=== PATIENT | female | born 1990 | race Caucasian/White ===

== ENCOUNTER 2017-03-07 22:14 | Emergency (ER) | payer OTHER ==
[~2017-03-07] VITALS: Ht 162.6 cm; Wt 59.0 kg
[2017-03-07 22:15] VITALS: BP 117/68; PULSE 67; RESP 16; TEMP 98.9; O2SAT 100
[2017-03-07] MEDS ORDERED: NORG1TAB29 PO (22:25)
[2017-03-07] MEDS ORDERED: LEXA10TA PO (22:25)
--- NOTE | 2017-03-08 00:42 | PD ---
HPI Chief Complaint: Injury Time Seen by Provider: 00:51 Travel History International Travel<30 days: No Contact w/Intl Traveler<30days: No Traveled to known affect area: No History of Present Illness HPI 26-year-old female presents to the emergency room after needle stick to the left thumb. Patient is right-handed. 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 Patient states she had a puncture wound that did bleed and she immediately rinsed the finger. Patient denies any personal history of any medical concerns. Patient states that the source patient reportedly has been hospitalized here since September. Reportedly the patient does not have history of hepatitis. HIV status is reportedly on clear. Pain is 0/10. Tetanus status is current and less than 5 years. PFSH Past Medical History Narrative Medical anxiety; no tobacco use; nursing notes reviewed Anxiety: Yes Diminished Hearing: No Tetanus Vaccination: < 5 Years Influenza Vaccination: Yes ?: Not LMP: 02/15/17 : 0 Para: 0 Social History Alcohol Use: No Tobacco Use: No Substance Use: No Allergies-Medications (Allergen,Severity, Reaction): Uncoded Allergies: sulfa drugs (Allergy, Unknown, 03/07/17) Reported Meds & Prescriptions Reported Meds & Active Scripts Active Reported Low-Ogestrel (Norgestrel-Ethinyl Estradiol) 0.3-30 Mg-Mcg Tab 1 Tab PO DAILY Lexapro (Escitalopram Oxalate) 10 Mg Tab 10 Mg PO DAILY Review of Systems Except as stated in HPI: all other systems reviewed are Neg Physical Exam Narrative GENERAL: Well-developed well-nourished pleasant female in no acute distress no respiratory distress SKIN: Warm and dry. Attention left thumb distal pad no obvious puncture wound identified only small subcentimeter ecchymosis. No active bleeding. HEAD: Normocephalic. EYES: No scleral icterus. No injection or drainage. NECK: Supple, trachea midline. No JVD or lymphadenopathy. CARDIOVASCULAR: Regular rate and rhythm without murmurs, gallops, or rubs. RESPIRATORY: Breath sounds equal bilaterally. No accessory muscle use. Data Data Last Documented VS Vital Signs Date Time Temp Pulse Resp B/P (MAP) Pulse Ox O2 Delivery O2 Flow Rate FiO2 03/08/17 01:54 03/07/17 22:15 98.9 67 16 100 Room Air Orders Orders Ed Discharge Order (03/08/17 01:11) MDM Medical Decision Making Medical Screen Exam Complete: Yes Emergency Medical Condition: Yes Medical Record Reviewed: Yes Differential Diagnosis Needle stick, polymicrobial exposure Narrative Course Patient given appropriate post exposure prophylaxis literatures/information. Patient was able to have consent to identify that he is negative for HIV and for hepatitis; consent was obtained to give this information to the patient and she decided to decline prophylaxis post needlestick and as the source patient is negative for HIV and hepatitis there is no clear indication to proceed with post exposure prophylaxis/medication administration. Patient's tetanus status is current. Specimens collected as baseline from the patient per protocol. Patient is stable to return to work. Diagnosis Primary Impression: Needlestick injury with contaminated needle Qualified Codes: W46.1XXA - Contact with contaminated hypodermic needle, initial encounter Referrals: [employer] 1 day Patient Instructions: General Instructions Med/Other Pt SpecificInfo: No Meds Exist/No RX given Disposition: 01 DISCHARGE HOME Condition: Stable Jaclyn Santillan MD Mar 08, 2017 00:42
== END 2017-03-08 03:24 | disposition home or self-care (01) ==
LOC: NEPC 22:14
DX: S61.032A Puncture wound without foreign body of left thumb without damage to nail, initial encounter (principal); F41.9 Anxiety disorder, unspecified; W46.1XXA Contact with contaminated hypodermic needle, initial encounter; Y92.230 Patient room in hospital as the place of occurrence of the external cause; Y99.0 Civilian activity done for income or pay; Z79.899 Other long term (current) drug therapy; Z88.2 Allergy status to sulfonamides
CPT/HCPCS: 99281

== ENCOUNTER 2017-12-20 04:00 | Observation (INO) ==
[2017-12-20] MEDS ORDERED: Famotidine PF Inj 20 MG/2 ML Vial IV.PUSH ONE (05:16)
[2017-12-20] MEDS ORDERED: Morphine Inj 4 MG/ML Vial IV.PUSH ONE (05:16)
[2017-12-20] MEDS ORDERED: Sod Chloride 0.9% Inj 1,000 ML IV.CONT SCH (05:30)
[2017-12-20 05:36] LABS: Baso % (Auto) 0.2 % (0.0-2.0); Eos % (Auto) 0.7 % (0.0-4.0); Hematocrit 36.8 % (35.0-46.0); Hemoglobin 12.5 gm/dL (11.6-15.3); Lymph # (Auto) 0.6 th/mm3 (1.0-4.8); Lymph % (Auto) 9.2 % (9.0-44.0); Mean Corpuscular HGB Conc 33.8 % (32.0-36.0); Mean Corpuscular Hemoglobin 28.2 pg (27.0-34.0); Mean Corpuscular Volume 83.2 fL (80.0-100.0); Mean Platelet Volume 8.9 fL (7.0-11.0); Mono # (Auto) 0.6 th/mm3 (0.0-0.9); Mono % (Auto) 9.3 % (0.0-8.0); Neut # (Auto) 5.3 th/mm3 (1.8-7.7); Neut % (Auto) 80.6 % (16.0-70.0); Platelet Count 229 th/mm3 (150-450); Red Blood Count 4.42 mil/mm3 (4.00-5.30); Red Cell Distribution Width 13.9 % (11.6-17.2); White Blood Count 6.6 th/mm3 (4.0-11.0)
[2017-12-20 05:55] LABS: Activated Partial Thrombo Time 30.5 sec (24.3-30.1); INR 1.1 Ratio
[2017-12-20 06:01] LABS: Albumin 3.5 g/dL (3.4-5.0); Anion Gap 10 meq/L (5-15); Aspartate Aminotransferase 25 U/L (15-37); Blood Urea Nitrogen 13 mg/dL (7-18); Calcium 8.6 mg/dL (8.5-10.1); Carbon Dioxide 22.9 meq/L (21.0-32.0); Chloride 105 meq/L (98-107); Glomerular Filtration Rate 85 mL/min (>89); Glucose,Random 87 mg/dL (74-106); Lipase 86 U/L (73-393); Potassium 3.8 meq/L (3.5-5.1); Sodium 138 meq/L (136-145)
[2017-12-20 06:02] LABS: Alanine Aminotransferase 36 U/L (10-53)
[2017-12-20 06:04] LABS: Alkaline Phosphatase 55 U/L (45-117); Total Protein 7.4 g/dL (6.4-8.2)
--- NOTE | 2017-12-20 06:05 | ED ---
HPI General Chief Complaint: Abdominal Pain Stated Complaint: Abd pain Time Seen by Provider: 12/20/17 05:07 Source: patient Mode of arrival: ambulatory Limitations: no limitations History of Present Illness HPI narrative: 27-year-old female complains of abdominal pain. Patient states that she started having lower abdominal pain 3 days ago. Patient was seen by personal physician Dr. Bacon and was referred to urologist Dr. Costello for evaluation. Patient had CT scan abdomen pelvis done 2 days ago which shows ovarian cyst. Patient was put on medication for that. Patient was also given Toradol for pain. Patient states the pain is sharp pain severe pain localized to lower abdomen. Patient denies any pain radiation. Patient states that she has nausea and dysuria with the pain. Patient denies any vaginal bleeding. Patient started having fever 101.3 degree tonight. Related Data Home Medications Medication Instructions Recorded Confirmed escitalopram oxalate [Lexapro] 10 mg PO DAILY 12/20/17 12/20/17 levofloxacin 500 mg PO DAILY 12/20/17 12/20/17 Allergies Allergy/AdvReac Type Severity Reaction Status Date / Time sulfa drugs Allergy Unknown Hives Uncoded 12/20/17 04:09 Review of Systems ROS: all other systems reviewed are negative [facility] Medical History Medical History Ovarian cyst (Acute) Social History Social History Substance History: No History of Abuse Second Hand Smoke Exposure: No Smoking Status: Never smoker How Often Do You Have a Drink Containing Alcohol: Monthly or less Recent Travel in [facility] within the Last 8 Weeks: No Recent Out of Country Travel within the Last 8 Weeks: No Immunization History Tetanus Immunization: Unsure Hx Influenza Vaccine This Season: Yes Exam Narrative Exam Narrative: GENERAL: Well-nourished, well-developed patient. SKIN: Focused skin assessment warm/dry. HEAD: Normocephalic. EYES: No scleral icterus. No injection or drainage. NECK: Supple, trachea midline. No JVD or lymphadenopathy. CARDIOVASCULAR: Regular rate and rhythm without murmurs, gallops, or rubs. RESPIRATORY: Breath sounds equal bilaterally. No accessory muscle use. GASTROINTESTINAL: Abdomen soft, nondistended. Patient has moderate to severe tenderness to palpation lower abdomen. No rebound tenderness. No mass. MUSCULOSKELETAL: No cyanosis, or edema. BACK: Nontender without obvious deformity. No CVA tenderness. Course Initial Documented Vital Signs Temperature 99.5 F 12/20/17 04:01 Pulse Rate 110 H 12/20/17 04:01 Respiratory Rate 18 12/20/17 04:01 Blood Pressure 110/59 L 12/20/17 04:01 Pulse Oximetry 96 12/20/17 04:01 Last Documented Vital Signs Temperature 99.5 F 12/20/17 04:01 Pulse Rate 79 12/20/17 07:37 Respiratory Rate 17 12/20/17 07:37 Blood Pressure 91/55 L 12/20/17 07:37 Pulse Oximetry 97 12/20/17 07:37 Medical Decision Making MDM Narrative Medical decision making narrative: 27-year-old female with low abdominal pain. Normal saline solution 125 cc an hour. Morphine 4 mg IV. Zofran 4 mg IV. Patient signed out to me, Dr. Spicer, by Dr. Rivas at 7AM. CT abd/pelvis performed shows possible ovarian cyst and free fluid in the pelvis. Pelvic exam performed shows thin, yellow discharge, yellowish lesion on the 12 o'clock area of the cervix. Patient very uncomfortable during the exam. US performed shows an area of fluid in the pelvis. I spoke with her director of retail merchandising , Dr. Bacon, who would like to take her to the OR for laparoscopy. Patient admitted to same day surgery. Medical Screen Exam Complete: Yes Emergency Medical Condition: Yes Differential Diagnosis Differential Diagnosis: Diagnosis including colitis, pink otitis, cholecystitis , Lab Data Lab results reviewed: Yes I reviewed the patient's lab results. Result diagrams: 12/20/17 04:30 12/20/17 04:30 Lab Results 12/20/17 12/20/17 12/20/17 Range/Units 04:30 04:30 04:30 WBC 6.6 (4.0-11.0) th/mm3 RBC 4.42 (4.00-5.30) mil/mm3 Hgb 12.5 (11.6-15.3) gm/dL Hct 36.8 (35.0-46.0) % MCV 83.2 (80.0-100.0) fL MCH 28.2 (27.0-34.0) pg MCHC 33.8 (32.0-36.0) % RDW 13.9 (11.6-17.2) % Plt Count 229 (150-450) th/mm3 MPV 8.9 (7.0-11.0) fL Neut % (Auto) 80.6 H (16.0-70.0) % Lymph % (Auto) 9.2 (9.0-44.0) % Amelia % (Auto) 9.3 H (0.0-8.0) % Eos % (Auto) 0.7 (0.0-4.0) % Baso % (Auto) 0.2 (0.0-2.0) % Neut # (Auto) 5.3 (1.8-7.7) th/mm3 Lymph # (Auto) 0.6 L (1.0-4.8) th/mm3 Amelia # (Auto) 0.6 (0.0-0.9) th/mm3 Eos # (Auto) 0.0 (0.0-0.4) th/mm3 Baso # (Auto) 0.0 (0.0-0.2) th/mm3 WBC Differential . Differential Comment Auto diff final PT 11.0 (9.8-11.6) sec INR 1.1 Ratio APTT 30.5 H (24.3-30.1) sec Sodium 138 (136-145) meq/L Potassium 3.8 (3.5-5.1) meq/L Chloride 105 (98-107) meq/L Carbon Dioxide 22.9 (21.0-32.0) meq/L Anion Gap 10 (5-15) meq/L BUN 13 (7-18) mg/dL Creatinine 0.82 (0.50-1.00) mg/dL Estimated GFR 85 L (>89) mL/min Random Glucose 87 (74-106) mg/dL Calcium 8.6 (8.5-10.1) mg/dL Total Bilirubin 0.2 (0.2-1.0) mg/dL AST 25 (15-37) U/L ALT 36 (10-53) U/L Alkaline Phosphatase 55 (45-117) U/L Total Protein 7.4 (6.4-8.2) g/dL Albumin 3.5 (3.4-5.0) g/dL Lipase 86 (73-393) U/L Urine Color (Yellw/Straw) Urine Clarity (Clear) Urine pH (5.0-8.5) Ur Specific Clifton (1.002-1.035) Urine Protein (Neg-Trace) mg/dL Urine Glucose (UA) (Negative) mg/dL Urine Ketones (Negative) mg/dL Urine Occult Blood (Negative) Urine Nitrate (Negative) Urine Bilirubin (Negative) Urine Urobilinogen (Less than 2) mg/dL Ur Leukocyte Esterase (Negative) Urine RBC (0-3) /hpf Urine WBC (0-5) /hpf Ur Squamous Epith Cells (0-5) /hpf Micro UA Comment Ur Microscopic Review Urine Culture Comments Clue Cells (Wet Prep) (None Seen) Trichomonas (Wet Prep) (None Seen) Yeast (Wet Prep) (None Seen) 12/20/17 12/20/17 Range/Units 06:20 09:25 WBC (4.0-11.0) th/mm3 RBC (4.00-5.30) mil/mm3 Hgb (11.6-15.3) gm/dL Hct (35.0-46.0) % MCV (80.0-100.0) fL MCH (27.0-34.0) pg MCHC (32.0-36.0) % RDW (11.6-17.2) % Plt Count (150-450) th/mm3 MPV (7.0-11.0) fL Neut % (Auto) (16.0-70.0) % Lymph % (Auto) (9.0-44.0) % Amelia % (Auto) (0.0-8.0) % Eos % (Auto) (0.0-4.0) % Baso % (Auto) (0.0-2.0) % Neut # (Auto) (1.8-7.7) th/mm3 Lymph # (Auto) (1.0-4.8) th/mm3 Amelia # (Auto) (0.0-0.9) th/mm3 Eos # (Auto) (0.0-0.4) th/mm3 Baso # (Auto) (0.0-0.2) th/mm3 WBC Differential Differential Comment PT (9.8-11.6) sec INR Ratio APTT (24.3-30.1) sec Sodium (136-145) meq/L Potassium (3.5-5.1) meq/L Chloride (98-107) meq/L Carbon Dioxide (21.0-32.0) meq/L Anion Gap (5-15) meq/L BUN (7-18) mg/dL Creatinine (0.50-1.00) mg/dL Estimated GFR (>89) mL/min Random Glucose (74-106) mg/dL Calcium (8.5-10.1) mg/dL Total Bilirubin (0.2-1.0) mg/dL AST (15-37) U/L ALT (10-53) U/L Alkaline Phosphatase (45-117) U/L Total Protein (6.4-8.2) g/dL Albumin (3.4-5.0) g/dL Lipase (73-393) U/L Urine Color Straw (Yellw/Straw) Urine Clarity Clear (Clear) Urine pH 7.0 (5.0-8.5) Ur Specific Clifton 1.010 (1.002-1.035) Urine Protein Negative (Neg-Trace) mg/dL Urine Glucose (UA) Negative (Negative) mg/dL Urine Ketones Negative (Negative) mg/dL Urine Occult Blood Negative (Negative) Urine Nitrate Negative (Negative) Urine Bilirubin Negative (Negative) Urine Urobilinogen Less than 2 (Less than 2) mg/dL Ur Leukocyte Esterase Trace H (Negative) Urine RBC 1 (0-3) /hpf Urine WBC 8 H (0-5) /hpf Ur Squamous Epith Cells 1 (0-5) /hpf Micro UA Comment Culture indicated Ur Microscopic Review Not Reportable Urine Culture Comments Culture indicated Clue Cells (Wet Prep) None seen (None Seen) Trichomonas (Wet Prep) None seen (None Seen) Yeast (Wet Prep) None seen (None Seen) Imaging Data Radiologist's impression: Abdomen/Pelvis CT 12/20/17 05:16 CONCLUSION: 1. Abnormal left adnexa consisting of some irregular enhancement about tube and ovary with fluid in the cul-de-sac all suspicious for PID. 2. I do not see inflammatory changes in the abdomen 3. There is no free fluid in the abdomen. Pelvis Ultrasound 12/20/17 08:06 CONCLUSION: Likely complex fluid adjacent to the left ovary. Discharge Plan Discharge Disposition Patient Disposition: 30 Still Patient Discharge Condition Condition: Stable Discharge Details Diagnosis: Left pelvic adnexal fluid collection Physicians Team ED Provider: Tessa Spicer Primary Care Provider: UNKNOWN, Attending Provider: Lake Bacon Status ED Status: With Doctor
[2017-12-20 06:52] LABS: Bilirubin,Urine Negative (Negative); Clarity,Urine Clear (Clear); Color,Urine Straw (Yellw/Straw); Glucose,Urine (UA) Negative (Negative); Leukocyte Esterase,Urine Trace (Negative); Nitrite,Urine Negative (Negative); Squamous Epithelial Cell,Urine 1 /hpf (0-5)
--- NOTE | 2017-12-20 08:00 | CT ---
EXAM DATE: 12/20/2017 5:47 AM EDT AGE/SEX: 27 years / Female INDICATIONS: Abdominal pain, fever. CLINICAL DATA: This is the patient's initial encounter. Patient reports that signs and symptoms have been present for 1 day and indicates a pain score of 6/10. MEDICAL/SURGICAL HISTORY: None. None. ORAL CONTRAST: No oral contrast ingested. RADIATION DOSE: 6.11 CTDI (mGy) COMPARISON: No prior exams available for comparison. TECHNIQUE: Multiple contiguous axial images were obtained through the abdomen and pelvis following b olus infusion of 90 ml Omnipaque 350 (iohexol) nonionic water-soluble contrast as a single exam dos e. No oral contrast ingested. Using automated exposure control and adjustment of the mA and/or kV ac cording to patient size, radiation dose was kept as low as reasonably achievable to obtain optimal di agnostic quality images. DICOM format image data is available electronically for review and comparis on. FINDINGS: Lower lungs are clear. The liver and gallbladder are unremarkable Spleen and pancreas appear normal Adrenals and kidneys are unremarkable. There is no evidence for stone or pyelonephritis. In the pelvis trace free fluid is evident with cystic areas in both adnexal regions and some enhancem ent in the left adnexa suggesting PID. The uterus is empty. Region of the cecum and terminal unremarkable. There is no evidence for colitis. Review of bone windows reveals mild degenerative changes about both SI joints. CONCLUSION: 1. Abnormal left adnexa consisting of some irregular enhancement about tube and ovary with fluid in the cul-de-sac all suspicious for PID. 2. I do not see inflammatory changes in the abdomen 3. There is no free fluid in the abdomen. Electronically signed by: Ramsey Jean MD 12/20/2017 7:58 AM EDT
--- NOTE | 2017-12-20 09:37 | US ---
EXAM DATE: 12/20/2017 8:06 AM EDT AGE/SEX: 27 years / Female INDICATIONS: Abnormal CT. Left pelvic pain and fever. CLINICAL DATA: This is the patient's initial encounter. Patient reports that signs and symptoms have been present for 4 - 6 days and indicates a pain score of 8/10. MEDICAL/SURGICAL HISTORY: . Ovarian cysts. None. [place] [facility] [place]AST[place] 12/20/2017. . MEASUREMENTS: Uterus:__10.8 x 3.9 x 5.5 cm Endometrial Stripe:__11 mm Right Ovary:__ 4.3 x 1.4 x 3.0 cm Left Ovary:__ 4.3 x 2.3 x 3.2 cm FINDINGS: Uterus: The myometrium has homogeneous echotexture without mass. Endometrial Stripe: The endometrial stripe displays homogeneous echotexture. Right Ovary: Ovary contains no mass. Follicles are present. Left Ovary: Ovary contains no mass. Follicles are present. Adjacent to the left ovary, there is an a ryann of complex echogenicity which correlates with the low density finding on CT. While the sonographi c appearance would potentially be consistent with a solid process, this is felt most likely to be com plex fluid of some type, potentially pyosalpinx or hematosis out thanks versus adjacent loculated per iadnexal fluid. Fluid: Trace free fluid. Other: None. CONCLUSION: Likely complex fluid adjacent to the left ovary. Electronically signed by: Lake Calvillo MD 12/20/2017 9:36 AM EDT
[2017-12-20] MEDS ORDERED: Azithromycin Inj 500 MG in Sodium Chlor 0.9% Inj 250 ML IV.SIG ONE (10:31)
[2017-12-20] MEDS ORDERED: Bupivacaine/Epinephrine 0.5% Inj 50 ML Vial ONE (12:45)
[2017-12-20] MEDS ORDERED: Scopalamine 1.5 MG Patch T-DERMAL ONE (13:01)
--- NOTE | 2017-12-20 13:05 | MH ---
cc: Lake Bacon MD DATE OF ADMISSION: 12/20/2017 ADMITTING DIAGNOSES: 1. Pelvic pain. 2. Left ovarian cyst, probable rupture with hemorrhage. HISTORY OF PRESENT ILLNESS: This 27-year-old single white female, para 0, had been on OCPs until 11/04/2017. She had a period on 11/29/2017 and then developed some ovulatory-type discomfort involving the left lower quadrant 12/16/2017. She had CT scan done through a urologist which showed bilateral cysts, 4 cm on the left. She had called last night with increased pain, low-grade fever, began Levaquin. About 3 a.m. today, the pain intensified and she came to the ED for evaluation. CAT scan and ultrasound showed a cystic mass on the left with free fluid. Her white count is 6000. Her other labs are normal. She os now admitted for surgical evaluation. PAST SURGICAL HISTORY: Previous arthroscopic surgery to the left knee in 2008. MEDICATIONS: 1. Vitamins. 2. Levaquin. 3. Zofran. ALLERGIES: NONE. TRANSFUSIONS: None. SOCIAL HISTORY: She is single, engaged. She is an RN. Alcohol, tobacco and drugs are none. FAMILY HISTORY: Noncontributory. PHYSICAL EXAMINATION: GENERAL: This is a well-nourished, well-developed white female. VITAL SIGNS: Stable. HEENT: Normal. CHEST: Clear. HEART: Regular rate. BREASTS: Symmetrical. ABDOMEN: Tender left lower quadrant. PELVIC: Normal external genitalia and BUS. Vagina is normal. Cervix normal. Tenderness in the left lower quadrant as above. ASSESSMENT: As above. PLAN: She will have laparoscopy and possible laparotomy, cystectomy if torsion is found, possible oophorectomy. The risks and benefits explained and accepted. MD YOLANDA Pruitt/kemal , 12:44 PM , 12:51 PM
[2017-12-20] MEDS ORDERED: Lidocaine PF 1% Inj 5 ML Syringe OTHER ONE (13:18)
[2017-12-20] MEDS ORDERED: Succinylcholine Inj 100 MG/5 ML Syringe IV.PUSH ONE (13:18)
[2017-12-20] MEDS ORDERED: Ketorolac Inj 30 MG/ML (IVP) Vial IM ONE (13:18)
[2017-12-20] MEDS ORDERED: Ketorolac Inj 30 MG/ML (IVP) Vial IV.PUSH ONE (13:18)
[2017-12-20] MEDS ORDERED: Chlorhexidine Gluconate 2% 1 Pack (2 Cloths) TOPICAL SCH (13:36)
[2017-12-20] MEDS ORDERED: Metoprolol Tartrate 25 MG Tablet PO SCH (13:36)
[2017-12-20] MEDS ORDERED: Sodium Chlor 0.9% Inj 500 ML IV.SIG SCH ×2 (14:00)
[2017-12-20] MEDS ORDERED: Zolpidem Tartrate 5 MG Tablet PO PRN (14:09)
[2017-12-20] MEDS ORDERED: HYDROmorphone PF Inj 1 MG/ML Ampul IV.PUSH PRN (14:09)
[2017-12-20] MEDS ORDERED: fentaNYL Citrate Inj 100 MCG/2 ML Ampul ONE (14:35)
[2017-12-20] MEDS: KCL 20 mEq/D5W/NaCl 0.45% Inj 1,000 ML IV.CONT SCH ×2 (14:50→23:19)
[2017-12-20] MEDS ORDERED: *Meperidine Inj 25 MG/ML Vial PERIprocedural Use ONLY ONE (14:52)
[2017-12-20] MEDS ORDERED: *morphine SULFATE 4 MG/ML PERIprocedure ONLY ONE (15:28)
[2017-12-20] MEDS: Ketorolac Inj 30 MG/ML (IVP) Vial IV.PUSH SCH ×2 (15:41→20:53)
[2017-12-20] MEDS: HYDROmorphone PF Inj 2 MG/ML Vial IV.PUSH PRN ×2 (17:41→22:20)
--- NOTE | 2017-12-20 21:58 | MP ---
cc: Lake Bacon MD DATE OF OPERATION: 12/20/2017 PREOPERATIVE DIAGNOSES: 1. Pelvic pain. 2. Left ovarian cyst. POSTOPERATIVE DIAGNOSES: 1. Pelvic pain. 2. Left ovarian cyst. PROCEDURE PERFORMED: Laparoscopy with a left ovarian cystectomy. ANESTHESIA: General ET. SURGEON: Lake Bacon MD GIRLS SWIMMING COACH: MARCELO De Paz ESTIMATED BLOOD LOSS: 25 mL. FLUIDS: 1 liter of crystalloid. DESCRIPTION OF PROCEDURE: Following induction of adequate general endotracheal anesthesia, the patient was prepped and draped supine on the operating table, dorsal lithotomy position in usual sterile fashion with the bladder being drained by Hastings catheterization. The abdomen was opened through a .5 cm infraumbilical incision. A 5 port was placed, followed by laparoscope attached to a camera. A second 5 in the lower quadrant and an AirSeal in the right lower quadrant. Pelvic contents revealed a 4 cm cyst, left ovary, with normal tubes, normal ovaries, normal cul-de-sacs, normal liver edge, normal appendix. There was about 100 mL of blood-tinged fluid, suggesting a partial cyst rupture with a small amount of blood. This was aspirated out. A Harmonic scalpel was used to excise the cyst wall and was extracted through the AirSeal port. Irrigation was now performed. No bleeding was evident. The ovarian cyst cavity site was coated with Trisha and observed with low pressure for no bleeding. The instruments were now removed and gas was allowed to escape. Each port injected with 3 mL of Marcaine 0.5% with epinephrine and the wounds were closed with 3-0 Monocryl interrupted. Hastings discontinued. All counts were correct. The patient's legs were taken out of the stirrups. She was awakened and taken to the recovery room in good condition. MD YOLANDA Pruitt/monique , 08:31 PM , 08:37 PM [facility]
[2017-12-20 22:53] LABS: Hematocrit 33.6 % (35.0-46.0); Hemoglobin 11.3 gm/dL (11.6-15.3); Mean Corpuscular HGB Conc 33.5 % (32.0-36.0); Mean Corpuscular Hemoglobin 28.1 pg (27.0-34.0); Mean Corpuscular Volume 83.8 fL (80.0-100.0); Mean Platelet Volume 8.9 fL (7.0-11.0); Platelet Count 206 th/mm3 (150-450); Red Cell Distribution Width 14.5 % (11.6-17.2); White Blood Count 4.4 th/mm3 (4.0-11.0)
[2017-12-21] MEDS: Ketorolac Inj 30 MG/ML (IVP) Vial IV.PUSH SCH (03:41)
[2017-12-21] MEDS: HYDROmorphone PF Inj 2 MG/ML Vial IV.PUSH PRN (04:11)
[2017-12-21 06:08] VITALS: RESP 18
[2017-12-21 06:32] LABS: Baso % (Auto) 0.1 % (0.0-2.0); Eos % (Auto) 0.1 % (0.0-4.0); Hematocrit 32.8 % (35.0-46.0); Hemoglobin 10.8 gm/dL (11.6-15.3); Lymph # (Auto) 0.6 th/mm3 (1.0-4.8); Lymph % (Auto) 11.3 % (9.0-44.0); Mean Corpuscular Hemoglobin 27.8 pg (27.0-34.0); Mean Corpuscular Volume 84.2 fL (80.0-100.0); Mean Platelet Volume 8.7 fL (7.0-11.0); Mono # (Auto) 0.3 th/mm3 (0.0-0.9); Mono % (Auto) 6.3 % (0.0-8.0); Neut # (Auto) 4.2 th/mm3 (1.8-7.7); Neut % (Auto) 82.2 % (16.0-70.0); Platelet Count 196 th/mm3 (150-450); Red Blood Count 3.89 mil/mm3 (4.00-5.30); Red Cell Distribution Width 13.9 % (11.6-17.2); White Blood Count 5.2 th/mm3 (4.0-11.0)
[2017-12-21 07:31] LABS: Anion Gap 9 meq/L (5-15); Blood Urea Nitrogen 6 mg/dL (7-18); Carbon Dioxide 27.4 meq/L (21.0-32.0); Chloride 105 meq/L (98-107); Glomerular Filtration Rate Greater Than 89 mL/min (>89); Glucose,Random 125 mg/dL (74-106); Potassium 3.7 meq/L (3.5-5.1); Sodium 141 meq/L (136-145)
[2017-12-21 08:15] VITALS: BP 83/54; PULSE 51; TEMP 98.1; O2SAT 96
[2017-12-21] MEDS: KCL 20 mEq/D5W/NaCl 0.45% Inj 1,000 ML IV.CONT SCH (08:38)
[2017-12-21] MEDS ORDERED: Fluconazole 100 MG Tablet PO ONE (10:00)
== END 2017-12-21 11:34 | disposition home or self-care (01) ==
LOC: NEPE 04:00 → HSDI 11:36 → HSDC 11:36 → H1EA 16:04
PROVIDERS: ADMIT Obstetrics & Gynecology; ATTEND Obstetrics & Gynecology
PROC: LAPSALP (ICD-10-PCS; 2017-12-20 13:18)